=== PATIENT | female | born 1935 | race Caucasian/White ===

== ENCOUNTER → 2021-09-03 | Outpatient (CLI) | payer MEDICARE ==
[~2021-09-03] MED LIST: CARV6.25 PO; DIGO0.123 PO; FURO20TA2 PO; GABA-282 PO; LEVO50TA5 PO; POTA1TAB23 PO; PRAD150C6 PO; PRAV20TA2 PO; SPIR-10 PO
== END ==
LOC: M LABSMTC 10:16
PROVIDERS: ATTEND Anesthesiology
DX: Z01.812 Encounter for preprocedural laboratory examination (principal); Z20.822 Contact with and (suspected) exposure to COVID-19

== ENCOUNTER 2021-09-08 13:18 | Day surgery (SDC) | payer MEDICARE ==
[~2021-09-08] VITALS: Ht 160 cm; Wt 74.8 kg
[~2021-09-08 13:18] MED LIST changes: +LIDOCAINE 1% MDV 20ML VIAL SQ PRN; +LR 1,000 ML IV ONE; +ceFAZolin SOD 2 GM in IV 1 EA IV ONE
[2021-09-08] MEDS ORDERED: POLYSPORIN TOPICAL OINTMENT 15GM As Ordered ONE (15:44)
[2021-09-08] MEDS ORDERED: LIDOCAINE 1% SDV 30ML VIAL As Ordered ONE (15:44)
[2021-09-08] MEDS ORDERED: BACITRACIN OINTMENT 30GM TUBE As Ordered ONE (15:45)
[2021-09-08] MEDS ORDERED: ETOMIDATE INJ 20MG/10ML VIAL As Ordered ONE (16:19)
[2021-09-08] MEDS ORDERED: LIDOCAINE 2% 100MG/5ML SDV (FOR ANES.) As Ordered ONE (16:19)
[2021-09-08] MEDS ORDERED: ONDANSETRON 4MG/2ML VIAL As Ordered ONE (16:19)
[2021-09-08] MEDS ORDERED: fentaNYL 100 MCG/2 ML INJECTION As Ordered ONE (16:19)
[2021-09-08] MEDS ORDERED: propofoL 500 MG/50 ML VIAL As Ordered ONE (16:19)
== END 2021-09-08 18:23 | disposition home or self-care (01) ==
LOC: M SDC 13:18
PROVIDERS: ATTEND Internal Medicine Cardiovascular Disease
DX: Z45.010 Encounter for checking and testing of cardiac pacemaker pulse generator [battery] (principal); I48.91 Unspecified atrial fibrillation; I10 Essential (primary) hypertension; E04.0 Nontoxic diffuse goiter; Z79.02 Long term (current) use of antithrombotics/antiplatelets; I50.9 Heart failure, unspecified; Z79.899 Other long term (current) drug therapy; E78.5 Hyperlipidemia, unspecified
CPT/HCPCS: 33228; C1785; J0690; J2405; J3010